=== PATIENT | female | born 1995 | race Caucasian/White ===

== ENCOUNTER 2017-08-09 17:47 | Emergency (ER) | payer OTHER ==
[2017-08-09] MEDS ORDERED: NS 1,000 ML IV ONE (18:54)
--- NOTE | 2017-08-09 18:58 | EDPHY ---
H & P Time Seen by Provider: 08/09/17 18:36 HPI/ROS: HPI Lightheaded. 22-year-old female by private vehicle with her father. This patient reports that since yesterday morning she has been feeling intermittently lightheaded. She reports that this is worse when she is sitting and then stands. She notices it when she is riding in a car and then gets out of the car. She had a syncopal event back in June. Has not had a syncopal event since that time. Denies any loss of consciousness regarding her complaint today. Denies any associated chest pain, palpitations, headache, shortness of breath. No other complaints. ROS: Constitutional: No fever, no chills. As above. Eyes: No discharge. No changes in vision. ENT: No sore throat. No nasal congestion or rhinorrhea. Respiratory: No cough. No shortness of breath. Cardiac: No chest pain, no palpitations. Gastrointestinal: No abdominal pain, no vomiting, no diarrhea. Genitourinary: No hematuria. No dysuria or increased frequency with urination. Musculoskeletal: No back pain. No neck pain. No myalgias or arthralgias. Skin: No rashes. Neurological: No headache. No focal weakness or altered sensation. Past medical history: She takes Lexapro, Vyvanse and Adderall for depression and attention deficit hyperactivity disorder. Social history: Nonsmoker. Here with her father. No alcohol. Denies IV drugs or street drugs. Physical Exam: General Appearance: Alert, no distress. This patient is responding to questions appropriately and in full sentences. This patient appears well- hydrated and well-nourished. Eyes: Pupils equal and round no pallor or injection. No lid edema, erythema or injection. Respiratory: There are no retractions, lungs are clear to auscultation with good air movement bilaterally. Cardiovascular: Regular rate and rhythm. No murmur. Gastrointestinal: Abdomen is soft and nontender, no masses, bowel sounds normal. No focal tenderness at McBurney's point. No Cortez sign. Neurological: Motor sensory function is grossly intact. Cranial nerves are normal. Gait is normal. Skin: Warm and dry, no rashes. Musculoskeletal: Neck is supple and nontender. Extremities are symmetrical. All joints range without pain or impingement. Psychiatric: No agitation. No depression. Database: EKG: EKG time is 7:07 p.m.; EKG shows a narrow complex normal sinus rhythm with a ventricular rate of 78. The AR, QRS, QT intervals are within normal limits. There are no ST-T wave changes indicative of ischemic or injury pattern. No evidence of right heart strain. No evidence of WPW, Brugada, hypertrophic cardiomyopathy. Interpreted by me. Imaging: Procedures: Emergency department course: Vital signs reviewed and are normal. An IV was placed. She will be given 1 L of IV normal saline over the next hour. EKG obtained and reviewed by myself. 7:35 p.m., patient re-evaluated. Resting comfortably. Her vital signs have remained normal throughout her emergency department course. She is asymptomatic at this time. Results of her diagnostic workup in the emergency department were discussed with her and her father. No red flags on her EKG. She states that the symptoms seem to be worse when she is driving in her car. She denies vertigo in the classic sense of a feeling of motion when there is no motion. She feels comfortable going home at this time. I will have her follow up with her primary care physician for re-evaluation in 1-2 days. I will prescribe her meclizine given her description of symptoms which are worse when she is driving. Return to emergency department precautions were thoroughly reviewed with her. All of her questions were answered. The patient was discharged home in good condition with her father. Differential Diagnosis: The differential diagnosis on this patient includes but is not limited to vasovagal syncope. Arrhythmia, anemia, pulmonary embolism, subarachnoid hemorrhage unlikely. This represents a partial list of diagnoses considered. These considerations are based on history, physical exam, past history, reassessment and diagnostic testing. Smoking Status: Never smoked Constitutional: Initial Vital Signs Temperature (C) 36.6 C 08/09/17 17:58 Heart Rate 76 08/09/17 17:58 Respiratory Rate 18 08/09/17 17:58 Blood Pressure 117/84 H 08/09/17 17:58 O2 Sat (%) 96 08/09/17 17:58 O2 Delivery Mode Room Air Allergies/Adverse Reactions: Penicillins Allergy (Intermediate, Verified 08/09/17 17:57) Rash Home Medications: Medication Instructions Recorded Adderall 20 mg (RX) 20 mg PO DAILY 01/13/14 Vyvanse 60 mg PO DAILY 01/13/14 Lexapro 08/09/17 Meclizine HCl [ANTIVERT] 25 mg PO Q6 PRN #10 tab 08/09/17 Medical Decision Making - Data Points Laboratory Results: 08/09/17 19:08 POC Hgb 15.6 gm/dL gm/dL (12.6-16.3) POC Hct 46 % % (38-47) POC Sodium 141 mEq/L mEq/L (135-145) POC Potassium 3.4 mEq/L mEq/L (3.3-5.0) POC Chloride 100 mEq/L mEq/L (97-110) POC BUN 11 mg/dL mg/dL (7-23) POC Creatinine 0.8 mg/dL mg/dL (0.6-1.0) POC Glucose 82 mg/dL mg/dL (70-100) Medications Given: Discontinued Medications Sodium Chloride (Ns) 1,000 mls @ 0 mls/hr IV EDNOW ONE; Wide Open PRN Reason: Protocol Stop: 08/09/17 18:55 Last Admin: 08/09/17 19:01 Dose: 1,000 mls Point of Care Test Results: Chemistry 08/09/17 19:08 POC Sodium 141 mEq/L mEq/L (135-145) POC Potassium 3.4 mEq/L mEq/L (3.3-5.0) POC Chloride 100 mEq/L mEq/L (97-110) POC BUN 11 mg/dL mg/dL (7-23) POC Creatinine 0.8 mg/dL mg/dL (0.6-1.0) POC Glucose 82 mg/dL mg/dL (70-100) ISTAT H&H 08/09/17 19:08 POC Hgb 15.6 gm/dL gm/dL (12.6-16.3) POC Hct 46 % % (38-47) Departure - Departure Disposition: Home, Routine, Self-Care Clinical Impression: Lightheaded Condition: Good Instructions: Lightheadedness (ED) Additional Instructions: Read and follow provided instructions. Follow-up with your primary care physician in 1-2 days for re-evaluation. I have given you a couple of options. Take medication as prescribed for motion sickness. This medication can make you drowsy. Return to the emergency department for worsening symptoms, fainting, vomiting or other serious concerns. Referrals: Romina Armendariz MD [Medical Doctor] - As per Instructions Juliana Pena MD [Medical Doctor] - As per Instructions Stand Alone Forms: Work Limited Duty Prescriptions: Meclizine HCl [ANTIVERT] 25 mg PO Q6 PRN #10 tab PRN Reason: Dizziness
--- NOTE | 2017-08-09 19:09 | CPEKG ---
Heart Rate: 78 RR Interval: 769 P-R Interval: 152 QRSD Interval: 86 QT Interval: 404 QTC Interval: 461 P [place]: 74 QRS [place]: 81 T Wave [place]: 52 EKG Severity - NORMAL ECG - EKG Impression: SINUS RHYTHM Electronically Signed By: Luann Doll 09-Aug-2017 22:21:45
[2017-08-09 20:05] VITALS: BP 108/62
== END 2017-08-09 20:03 | disposition home or self-care (01) ==
DX: R42 Dizziness and giddiness (principal); E86.9 Volume depletion, unspecified
CPT/HCPCS: 82435-PO; 82565-PO; 82947-PO; 84132-PO; 84295-PO; 84520-PO; 85014-PO